=== PATIENT | female | born 1960 | race Caucasian/White ===

== ENCOUNTER → 2017-10-03 | Outpatient (CLI) | payer OTHER | LOC: M.RAD 11:54 | DX: M77.32 Calcaneal spur, left foot (principal) ==

== ENCOUNTER 2020-05-23 10:43 | Emergency (ER) | payer OTHER ==
[~2020-05-23] VITALS: Ht 175.3 cm; Wt 85.3 kg
[2020-05-23] MEDS ORDERED: SUPER THERAVIT1 EACH PO (10:57)
[2020-05-23 11:04] LABS: ABSOLUTE BASOPHILS 0.1 thou/uL (0.0-0.2); ABSOLUTE EOSINOPHILS 0.1 thou/uL (0.0-0.7); ABSOLUTE LYMPHOCYTES 2.3 thou/uL (0.8-5.3); ABSOLUTE MONOCYTES 0.5 thou/uL (0.0-1.2); ABSOLUTE NEUTROPHILS 5.1 thou/uL (1.6-8.1); BASOPHILS 0.8 %; EOSINOPHILS 0.7 %; HEMATOCRIT 41.3 % (37.0-47.0); MCH 30.2 pg (26.0-34.0); MCHC 33.8 g/dL (28.0-37.0); MCV 89.3 fL (80.0-100.0); MONOCYTES 6.2 %; MPV 7.4 fl. (7.2-11.1); NUCLEATED RBCS 0 /100WBC; PLATELET COUNT* 273 thou/uL (150-400); POLYS 63.3 %; RBC 4.62 mil/uL (4.20-5.00); RDW-CV 13.6 % (10.5-14.5); WBC 8.1 thou/uL (4.0-11.0)
[2020-05-23 11:13] LABS: CALCIUM 9.2 mg/dL (8.5-10.1); CREATININE 1.1 mg/dL (0.6-1.3); POTASSIUM 3.7 mmol/L (3.5-5.1)
[2020-05-23 11:23] LABS: APTT 26.5 Seconds (25.0-31.3); PROTIME 10.3 Seconds (9.20-11.50)
[2020-05-23 11:24] LABS: ALBUMIN 3.9 g/dL (3.4-5.0); TOTAL BILIRUBIN 0.6 mg/dL (<0.1-1.0); TOTAL PROTEIN 7.5 g/dL (6.4-8.2)
[2020-05-23 12:14] VITALS: BP 151/99
--- NOTE | 2020-05-24 09:18 | EKG ---
[place] [address] ELECTROCARDIOGRAM REPORT Name: CASSY PLASENCIA Room: [facility]#: [id number] Admission: 05/23/20 Attend Phys: Discharge: 05/23/20 Date of : 62 Date of Service: 05/23/20 1057 Report #: [id number] THIS REPORT FOR: //name// [facility] ED Test Date: 2020-05-23 Test Time: 10:57:25 Pat Name: CASSY PLASENCIA Department: Room: Gender: F Finance Administrator: CCD : 1960 Requested By: Olegario Hansen Order Number: [id number] MD: Tarun Brennan Measurements Intervals [place] Rate: 76 P: 46 MD: 140 QRS: 64 QRSD: 103 T: 30 QT: 412 QTc: 464 Interpretive Statements Sinus rhythm No previous ECG available for comparison Electronically Signed On 05-24-2020 9:18:12 [employer] by Tarun Brennan [email or web address] <ELECTRONICALLY SIGNED> By: Traun Brennan MD, [facility] 05/24/2018 1057 1057 Tarun Brennan MD, FAC /EPI
== END 2020-05-23 12:15 | disposition home or self-care (01) ==
LOC: M.ERS 10:43
PROVIDERS: Family Medicine
DX: R55 Syncope and collapse (principal); Z79.899 Other long term (current) drug therapy; Z88.8 Allergy status to other drugs, medicaments and biological substances; Z20.828 Contact with and (suspected) exposure to other viral communicable diseases